=== PATIENT | female | born 1980 | race Caucasian/White ===

== ENCOUNTER 2017-08-21 09:45 | Inpatient (IN) | payer BC ==
[2017-08-21] MEDS ORDERED: Betamethasone Acetate/Betamethasone Sod Phosphate 30 MG/5 ML MDV IM ONE (10:15)
[2017-08-21] MEDS ORDERED: Sodium Chloride 0.9% 10 ML Syringe FLUSH PRN (10:15)
[2017-08-21] MEDS ORDERED: Magnesium Sulfate/Water 40 GM/1,000 ML BAG ONE (10:22)
[2017-08-21] MEDS ORDERED: Magnesium Sulfate/Water 50 ML ONE (10:22)
[2017-08-21] MEDS ORDERED: Magnesium Sulfate/Water 100 ML ONE (10:22)
[2017-08-21] MEDS ORDERED: Magnesium Sulfate/Water 4 GM in Premix Bag 1 BAG IV ONE (10:26)
[2017-08-21] MEDS ORDERED: Magnesium Sulfate/Water 2 GM in Premix Bag 1 BAG IV ONE (10:26)
[2017-08-21] MEDS ORDERED: hydrALAZINE 20 MG/ML SDV IVPUSH STA (10:26)
[2017-08-21] MEDS: Lactated Ringers 1,000 ML IV SCH ×2 (10:33→18:03)
[2017-08-21] MEDS ORDERED: hydrALAZINE 20 MG/ML SDV IVPUSH ONE ×2 (10:53→18:14)
--- NOTE | 2017-08-21 11:03 | PCM.PREANE ---
Preanesthetic Assessment - Procedure Proposed Procedure: Emergent - Anesthesia/Transfusion/Family Hx Anesthesia History: Prior Anesthesia Without Reaction Family History of Anesthesia Reaction: No Transfusion History: No Prior Transfusion(s) Intubation History: Unknown - Review of Systems General: No Symptoms Pulmonary: No Symptoms Cardiovascular: Other (HTN, eclapmsia 178/111, pt on magnesium and been given hydralizine IV) Gastrointestinal: No Symptoms Neurological: No Symptoms Other: Reports: Anxiety - Physical Assessment NPO Status Date: 08/20/17 NPO Status Time: 21:30 Pulse: 74 O2 Sat by Pulse Oximetry: 98 Respiratory Rate: 18 Blood Pressure: 178/111 Temperature: 98.8 C Height: 1.73 m Weight: 116.21 kg ASA Class: 2E Mental Status: Alert & Oriented x3 Airway Class: Mallampati = 1 Dentition: Reports: Normal Dentition Thyro-Mental Finger Breadths: 3 Mouth Opening Finger Breadths: 3 ROM/Head Extension: Full Lungs: Clear to Auscultation, Normal Respiratory Effort Cardiovascular: Regular Rate, Regular Rhythm - Lab Values: Laboratory Last Values WBC 12.60 K/mm3 (3.98-10.04) H 08/21/17 10:10 RBC 4.63 M/mm3 (3.98-5.22) 08/21/17 10:10 Hgb 13.5 gm/L (11.2-15.7) 08/21/17 10:10 Hct 40.2 % (34.1-44.9) 08/21/17 10:10 MCV 86.8 fl (79.4-94.8) 08/21/17 10:10 MCH 29.2 pg (25.6-32.2) 08/21/17 10:10 MCHC 33.6 g/dl (32.2-35.5) 08/21/17 10:10 RDW Std Deviation 41.3 fL (36.4-46.3) 08/21/17 10:10 Plt Count 166 K/mm3 (182-369) L 08/21/17 10:10 MPV 12.3 fl (9.4-12.3) 08/21/17 10:10 Neut % (Auto) 70.1 % (34.0-71.1) 08/21/17 10:10 Lymph % (Auto) 20.1 % (19.3-51.7) 08/21/17 10:10 [place] % (Auto) 8.6 % (4.7-12.5) 08/21/17 10:10 Eos % (Auto) 0.7 (0.7-5.8) 08/21/17 10:10 Baso % (Auto) 0.2 % (0.1-1.2) 08/21/17 10:10 Neut # (Auto) 8.83 K/mm3 (1.56-6.13) H 08/21/17 10:10 Lymph # (Auto) 2.53 K/mm3 (1.18-3.74) 08/21/17 10:10 [place] # (Auto) 1.08 K/mm3 (0.24-0.36) H 08/21/17 10:10 Eos # (Auto) 0.09 K/mm3 (0.04-0.36) 08/21/17 10:10 Baso # (Auto) 0.03 K/mm3 (0.01-0.08) 08/21/17 10:10 BUN 11 mg/dL (7-18) 08/21/17 10:10 Creatinine 0.9 mg/dL (0.55-1.02) 08/21/17 10:10 Est Cr Clr Drug Dosing 88.01 mL/min 08/21/17 10:10 Estimated GFR (MDRD) > 60 mL/min (>60) 08/21/17 10:10 Uric Acid 5.3 mg/dL (2.6-6.0) 08/21/17 10:10 AST 23 U/L (15-37) 08/21/17 10:10 ALT 22 U/L (14-59) 08/21/17 10:10 Lactate Dehydrogenase 236 U/L (81-234) H 08/21/17 10:10 Urine Color Yellow (Yellow) 08/21/17 10:10 Urine Appearance Clear (Clear) 08/21/17 10:10 Urine pH 6.5 (5.0-8.0) 08/21/17 10:10 Ur Specific [place] 1.025 (1.005-1.030) 08/21/17 10:10 Urine Protein 2+ (Negative) H 08/21/17 10:10 Urine Glucose (UA) Negative (Negative) 08/21/17 10:10 Urine Ketones Negative (Negative) 08/21/17 10:10 Urine Occult Blood Negative (Negative) 08/21/17 10:10 Urine Nitrite Negative (Negative) 08/21/17 10:10 Urine Bilirubin Negative (Negative) 08/21/17 10:10 Urine Urobilinogen 0.2 (0.2-1.0) 08/21/17 10:10 Ur Leukocyte Esterase Negative (Negative) 08/21/17 10:10 - Allergies Allergies/Adverse Reactions: Allergies Allergy/AdvReac Type Severity Reaction Status Date / Time PAIN KILLERS AdvReac Nausea Uncoded 08/21/17 10:23 - Blood Blood Available: No Product(s) Available: None - Anesthesia Plan Pre-Op Medication Ordered: None - Acknowledgements Anesthesia Type Planned: General Anesthesia (if not enough time for spinal ), Spinal (with duramorph is first option) Pt an Appropriate Candidate for the Planned Anesthesia: Yes Alternatives and Risks of Anesthesia Discussed w Pt/Guardian: Yes Pt/Guardian Understands and Agrees with Anesthesia Plan: Yes PreAnesthesia Questionnaire - SUBSTANCE USE Smoking Status *Q: Never Smoker Recreational Drug Use History: No - HOME MEDS Home Medications: Home Meds ALPRAZolam [Xanax] 0.25 mg PO Q6H PRN 11/27/14 [History] - CURRENT (IN HOUSE) MEDS Current Meds: Current Medications Lactated Ringer's (Ringers, Lactated) 1,000 mls @ 75 mls/hr IV ASDIRECTED [facility] Last Admin: 08/21/17 10:33 Dose: 75 mls/hr Magnesium Sulfate (Magnesium Sulfate 40 Gm In Water 1000 Ml) 40 gm in 1,000 mls @ 50 mls/hr IV ASDIRECTED [facility] Sodium Chloride (Saline Flush) 10 ml FLUSH ASDIRECTED PRN PRN Reason: Keep Vein Open Discontinued Medications Betamethasone Acet/Betameth SodPhos ([place] Soluspan 6 Mg/Ml) 12 mg IM ONETIME ONE Stop: 08/21/17 10:16 Last Admin: 08/21/17 10:38 Dose: 12 mg Hydralazine HCl (Apresoline) 10 mg IVPUSH ONETIME STA Stop: 08/21/17 10:27 Last Admin: 08/21/17 10:33 Dose: 10 mg Magnesium Sulfate (Magnesium Sulfate 4 Gm In Water 100 Ml) Confirm Administered Dose 100 mls @ as directed .ROUTE .ST-MED ONE Stop: 08/21/17 10:23 Magnesium Sulfate (Magnesium Sulfate 2 Gm In Water 50 Ml) Confirm Administered Dose 50 mls @ as directed .ROUTE .STK-MED ONE Stop: 08/21/17 10:23 Magnesium Sulfate (Magnesium Sulfate 40 Gm In Water 1000 Ml) Confirm Administered Dose 40 gm in 1,000 mls @ as directed .ROUTE .ST-MED ONE Stop: 08/21/17 10:23 Magnesium Sulfate 4 gm/ Premix 100 mls @ 300 mls/hr IV ONETIME ONE Stop: 08/21/17 10:45 Last Admin: 08/21/17 10:45 Dose: 300 mls/hr Magnesium Sulfate 2 gm/ Premix 50 mls @ 300 mls/hr IV ONETIME ONE Stop: 08/21/17 10:35 Last Admin: 08/21/17 10:38 Dose: 300 mls/hr
[2017-08-21] MEDS: Magnesium Sulfate/Water 40 GM/1,000 ML BAG IV SCH (11:06)
[2017-08-21] MEDS ORDERED: Labetalol 100 MG/20 ML MDV ONE (11:06)
[2017-08-21] MEDS ORDERED: Labetalol 100 MG/20 ML MDV IVPUSH ONE ×2 (11:07→18:16)
[2017-08-21] MEDS ORDERED: Metoclopramide 10 MG/2 ML SDV IVPUSH ONE (11:13)
[2017-08-21] MEDS ORDERED: Citric Acid/Sodium Citrate Solution 30 ML Cup PO ONE (11:13)
[2017-08-21] MEDS ORDERED: ceFAZolin 2 GM in Premix Bag 1 BAG IV ONE (11:13)
[2017-08-21] MEDS ORDERED: Oxytocin/Lactated Ringers 10 UNIT/1,000 ML BAG IV SCH (11:15)
--- NOTE | 2017-08-21 11:19 | PCM.LDHP ---
L&D History of Present Illness - General Date of Service: 08/21/17 Admit Problem/Dx: Patient Status Order with Admit Dx/Problem 08/21/17 09:57 Patient Status [ADT] Routine Admission Diagnosis/Problem Admission Diagnosis/Problem Source of Information: Patient History Limitations: Reports: No Limitations - History of Present Illness Introduction:: Patient is a 36 y/o at 34 0/7 wks who presents to L&D from clinic today. Was seen for routine Ob appointment where BP's noted to be 142/96, 175/ 115, and 190/110. She was sent to L&D. She reports doing well. No headaches, vision changes, or RUQ pain. Has been getting good FM. No signs of labor - Related Data Allergies/Adverse Reactions: Allergies Allergy/AdvReac Type Severity Reaction Status Date / Time PAIN KILLERS AdvReac Nausea Uncoded 08/21/17 10:23 Home Medications: Home Meds ALPRAZolam [Xanax] 0.25 mg PO Q6H PRN 11/27/14 [History] Past Medical History Cardiovascular History: Reports: Hypertension Psychiatric History: Reports: Anxiety - Past Surgical History HEENT Surgical History: Reports: Oral Surgery ([place] tooth extraction), Tonsillectomy, Other (See Below) (TMJ) Female Surgical History: Reports: Section (x2) Male Surgical History: Reports: Lithotripsy (ESWL) Social & Family History - Tobacco Use Smoking Status *Q: Never Smoker - Alcohol Use Alcohol Use History: No - Recreational Drug Use Recreational Drug Use: No H&P Review of Systems - Review of Systems: Review Of Systems: See Below General: Reports: No Symptoms Pulmonary: Reports: No Symptoms Cardiovascular: Reports: No Symptoms Gastrointestinal: Reports: No Symptoms Genitourinary: Reports: No Symptoms Musculoskeletal: Reports: No Symptoms Psychiatric: Reports: No Symptoms Neurological: Reports: No Symptoms L&D Exam - Exam Exam: See Below - Vital Signs Vital Signs: Last Vital Signs Temp 98.8 C H 08/21/17 11:03 Pulse 98 08/21/17 11:12 Resp 18 08/21/17 11:03 BP 200/117 H 08/21/17 11:12 Pulse Ox 98 08/21/17 11:03 Weight: 116.21 kg - OB Specific Contraction Intensity: Irritability Movement: Active Heart Tones: Present Heart Tones per Min: 140 Heart Rate (FHR) Variability: Moderate (6-25 bmp) Presentation: Vertex - Exam General: Alert, Oriented, Cooperative Lungs: Clear to Auscultation, Normal Respiratory Effort Cardiovascular: Regular Rate, Regular Rhythm GI/Abdominal Exam: Soft, Non-Tender Extremities: Normal Inspection, Pedal Edema Skin: Warm, Dry, Intact Neurological: Cranial Nerves Intact, Reflexes Equal Bilateral DTR: 1+: Patella (L), Patella (R) - Patient Data Lab Results Last 24 hrs: Laboratory Results - last 24 hr 08/21/17 08/21/17 08/21/17 Range/Units 10:10 10:10 10:10 WBC 12.60 H (3.98-10.04) K/mm3 RBC 4.63 (3.98-5.22) M/mm3 Hgb 13.5 (11.2-15.7) gm/L Hct 40.2 (34.1-44.9) % MCV 86.8 (79.4-94.8) fl MCH 29.2 (25.6-32.2) pg MCHC 33.6 (32.2-35.5) g/dl RDW Std Deviation 41.3 (36.4-46.3) fL Plt Count 166 L (182-369) K/mm3 MPV 12.3 (9.4-12.3) fl Neut % (Auto) 70.1 (34.0-71.1) % Lymph % (Auto) 20.1 (19.3-51.7) % [place] % (Auto) 8.6 (4.7-12.5) % Eos % (Auto) 0.7 (0.7-5.8) Baso % (Auto) 0.2 (0.1-1.2) % Neut # (Auto) 8.83 H (1.56-6.13) K/mm3 Lymph # (Auto) 2.53 (1.18-3.74) K/mm3 [place] # (Auto) 1.08 H (0.24-0.36) K/mm3 Eos # (Auto) 0.09 (0.04-0.36) K/mm3 Baso # (Auto) 0.03 (0.01-0.08) K/mm3 BUN 11 (7-18) mg/dL Creatinine 0.9 (0.55-1.02) mg/dL Est Cr Clr Drug Dosing 88.01 mL/min Estimated GFR (MDRD) > 60 (>60) mL/min Uric Acid 5.3 (2.6-6.0) mg/dL AST 23 (15-37) U/L ALT 22 (14-59) U/L Lactate Dehydrogenase 236 H (81-234) U/L Urine Color Yellow (Yellow) Urine Appearance Clear (Clear) Urine pH 6.5 (5.0-8.0) Ur Specific [place] 1.025 (1.005-1.030) Urine Protein 2+ H (Negative) Urine Glucose (UA) Negative (Negative) Urine Ketones Negative (Negative) Urine Occult Blood Negative (Negative) Urine Nitrite Negative (Negative) Urine Bilirubin Negative (Negative) Urine Urobilinogen 0.2 (0.2-1.0) Ur Leukocyte Esterase Negative (Negative) Result Diagrams: 08/21/17 10:10 08/21/17 10:10 - Problem List (1) 34 weeks gestation of SNOMED Code(s): 59266041 ICD Code: Z3A.34 - 34 WEEKS GESTATION OF Status: Acute Current Visit: Yes (2) Chronic hypertension during SNOMED Code(s): 74095657 ICD Code: O10.919 - UNSP PRE-EXISTING HTN COMP , UNSP TRIMESTER Status: Acute Current Visit: Yes (3) Pre-eclampsia superimposed on chronic hypertension SNOMED Code(s): 25662065 ICD Code: O11.9 - PRE-EXISTING HYPERTENSION WITH PRE-ECLAMPSIA, UNSP TRIMESTER Status: Acute Current Visit: Yes (4) History of SNOMED Code(s): 906304442 ICD Code: Z98.891 - HISTORY OF UTERINE SCAR FROM PREVIOUS SURGERY Status: Acute Current Visit: Yes Problem List Initiated/Reviewed/Updated: Yes Orders Last 24hrs: Active Orders 24 hr Category Date Time Status Patient Status [ADT] Routine ADT 08/21/17 09:57 Active Bedrest [RC] ASDIRECTED Care 08/21/17 10:26 Active Communication Order [RC] ROUTINE Care 08/21/17 11:13 Ordered Heart Tones [RC] PER UNIT ROUTINE Care 08/21/17 11:13 Ordered Monitoring [RC] CONTINUOUS Care 08/21/17 10:26 Active Non Stress Test [RC] PER UNIT ROUTINE Care 08/21/17 09:57 Active Peripheral IV Care [RC] . DIRECTED Care 08/21/17 10:15 Active Procedure Site Prep Instruct [RC] ASDIRECTED Care 08/21/17 11:13 Ordered Verify Patient Consent Obtain [RC] PER UNIT ROUTINE Care 08/21/17 11:13 Ordered Vital Signs [RC] ASDIRECTED Care 08/21/17 10:26 Active Vital Signs [RC] PER UNIT ROUTINE Care 08/21/17 09:57 Active TYPE AND SCREEN [BBK] Routine Lab 08/21/17 11:13 Ordered UA W/MICROSCOPIC [URIN] Routine Lab 08/21/17 10:10 Results Citric Acid/Sodium Citrate [Bicitra Solution] Med 08/21/17 11:13 Once 30 ml PO ONETIME ONE Lactated Ringers [Ringers, Lactated] 1,000 ml Med 08/21/17 10:45 Ordered IV ASDIRECTED Magnesium Sulfate/Water [Magnesium Sulfate 40 GM in Med 08/21/17 11:00 Ordered Water 1000 ML] 40 gm in 1,000 ml IV ASDIRECTED Metoclopramide [Reglan] Med 08/21/17 11:13 Once 10 mg IVPUSH ONETIME ONE Oxytocin/Lactated Ringers [Pitocin in LR 10 Units/1,000 Med 08/21/17 11:15 Ordered ML] 10 unit in 1,000 ml IV ASDIRECTED Sodium Chloride 0.9% [Saline Flush] Med 08/21/17 10:15 Active 10 ml FLUSH ASDIRECTED PRN ceFAZolin [Ancef] 2 gm Med 08/21/17 11:13 Ordered Premix Bag 1 bag IV ONETIME Blood Pressure [OM.PC] ASDIRECTED Oth 08/21/17 10:30 Ordered Deep Tendon Reflexes [WOMSER] ASDIRECTED Oth 08/21/17 10:30 Ordered PIH Panel [OM.PC] Stat Oth 08/21/17 09:57 Ordered Peripheral IV Insertion Adult [OM.PC] Routine Oth 08/21/17 10:15 Ordered Schedule Procedure [COMM] Per Unit Routine Oth 08/21/17 11:13 Ordered Resuscitation Status Routine Resus Stat 08/21/17 09:57 Ordered Medication Orders Citric Acid/Sodium Citrate (Bicitra Solution) 30 ml PO ONETIME ONE Stop: 08/21/17 11:14 Lactated Ringer's (Ringers, Lactated) 1,000 mls @ 75 mls/hr IV ASDIRECTED [facility] Last Admin: 08/21/17 10:33 Dose: 75 mls/hr Magnesium Sulfate (Magnesium Sulfate 40 Gm In Water 1000 Ml) 40 gm in 1,000 mls @ 50 mls/hr IV ASDIRECTED [facility] Last Admin: 08/21/17 11:06 Dose: 50 mls/hr Cefazolin Sodium/Dextrose 2 gm (/ Premix) 50 mls @ 100 mls/hr IV ONETIME ONE Stop: 08/21/17 11:42 Oxytocin/Lactated Ringer's (Pitocin In Lr 10 Units/1,000 Ml) 10 unit in 1,000 mls @ 100 mls/hr IV ASDIRECTED [facility] PRN Reason: Protocol Metoclopramide HCl (Reglan) 10 mg IVPUSH ONETIME ONE Stop: 08/21/17 11:14 Sodium Chloride (Saline Flush) 10 ml FLUSH ASDIRECTED PRN PRN Reason: Keep Vein Open Assessment/Plan Comment:: 36 y/o at 34 0/7 wks who presents for concerns of elevated BP's c/w superimposed preeclampsia * Patient's initial BP's were 212/127, 195/120, 180/106. Magnesium started. 10 mg of IV hydralazine given at 1033. BP's still 187/117. 2nd dose of 10 mg IV hydralazine given at 1053. BP's still severe and so at 1112 she was given 20 mg of IV labetalol and decision made to proceed to OR for repeat as unstable for transfer to [place]. * CBC, AST, ALT, Creatinine, and T&S drawn * Ayde CHOWDARY * Surgery consent reviewed and signed * Anesthesia and Peds aware
[2017-08-21] MEDS ORDERED: ceFAZolin 1 GM Vial ONE (11:29)
[2017-08-21] MEDS ORDERED: Ondansetron 4 MG/2 ML SDV ONE (11:29)
[2017-08-21] MEDS ORDERED: Oxytocin 10 Units/1 ML SDV ONE (11:29)
[2017-08-21] MEDS ORDERED: Morphine PF 10 MG/10 ML SDV ONE (11:31)
[2017-08-21] MEDS ORDERED: Phenylephrine 1% 10 MG/ML SDV ONE (11:34)
[2017-08-21] MEDS ORDERED: ePHEDrine 50 MG/ML SDV ONE (11:36)
[2017-08-21] MEDS ORDERED: Ketorolac 30 MG/ML SDV ONE (12:29)
--- NOTE | 2017-08-21 12:43 | PCM.POSTAN ---
POST ANESTHESIA ASSESSMENT - MENTAL STATUS Mental Status: Alert, Oriented - VITAL SIGNS Pulse Rate: 76 SaO2: 95 Resp Rate: 7 Blood Pressure: 144/85 Temperature: 36.9 C - RESPIRATORY Respiratory Status: Respiratory Rate WNL, Airway Patent, O2 Saturation Stable, Supplemental Oxygen - CARDIOVASCULAR CV Status: Pulse Rate WNL, Blood Pressure Stable - GASTROINTESTINAL GI Status: No Symptoms - PAIN Pain Score: 0 - POST OP HYDRATION Hydration Status: Adequate & Stable
[2017-08-21] MEDS ORDERED: Meperidine PF 50 MG/ML Syringe IVPUSH PRN (12:44)
[2017-08-21] MEDS ORDERED: diphenhydrAMINE 50 MG/ML SDV IVPUSH PRN (12:44)
[2017-08-21] MEDS ORDERED: fentaNYL 100 MCG/2 ML SDV IVPUSH PRN (12:44)
[2017-08-21] MEDS ORDERED: Ondansetron 4 MG/2 ML SDV IVPUSH PRN (12:44)
--- NOTE | 2017-08-21 12:54 | PCM.OPNOTE ---
- General Post-Op/Procedure Note Date of Surgery/Procedure: 08/21/17 Operative Procedure(s): Repeat low transverse . Drainage/excision of left sided paratubal cyst Findings: Moderate amount of scar tissue between rectus and fascia. Minimal scar tissue between the bladder and lower uterine segment. Somewhat thinner than expected JONATHAN for 34 week gestation. Male in a vertex presentation with weight of 4 lbs 8 oz and APGARS of 7 & 8. Large, approximately 6-7 cm, left sided paratubal cyst. Pre Op Diagnosis: 34 weeks gestation. Hx of x2. Superimposed preeclampsia Post-Op Diagnosis: Same Anesthesia Technique: Spinal Primary Surgeon: [place] Tuttle Secondary Surgeon: Samantha Crain Anesthesia Provider: Rohan Sheehan Reason Flat Lock Operator Was Necessary: Severity of underlying maternal condition, speed of case, etc. Pathology: Placenta sent to pathology. Cord blood collected. Paratubal cyst discarded. Fluid Replacement, Intraop: 1,000 Output, Urine Amount: 300 EBL in mLs: 700 Complications: None Condition: Good Free Text/Narrative:: The risks, benefits, indications, potential complications, and alternatives were explained to the patient and informed consent obtained. After induction of anesthesia, the patient was placed in a supine position and then draped and prepped in the usual sterile manner. A Pfannenstiel incision was made and carried down through the subcutaneous tissue to the fascia. Fascial incision was made and extended transversely. The fascia was from the underlying rectus tissue superiorly and inferiorly. The peritoneum was identified and entered. Peritoneal incision was extended longitudinally. The utero-vesical peritoneal reflection was incised transversely and the bladder flap was bluntly freed from the lower uterine segment. A low transverse uterine incision was made sharply with a scalpel and extended bluntly in a cephalocaudad direction. A baby boy was delivered from a vertex presentation with APGARS as above. After the umbilical cord was clamped and cut cord blood was obtained for evaluation. The placenta was removed intact and appeared normal. The uterus was exteriorized and cleared of clots. The uterine outline and ovaries appeared normal. There was a large, left sided paratubal cyst noted. The uterine incision was closed with running locked sutures of 0 Vicryl. Hemostasis was obtained with a second imbricating layer of 0 vicryl. The paratubal cyst was then opened/drained with cautery and cyst wall excised. Few bleeding ends controlled with two free ties of 0 vicryl. The uterus was then placed back into the abdomen. The infracolic gutters were cleared of blood clots. The fascia was then reapproximated with running sutures of 0 Vicryl. The sucutaneous tissue was irrigated with sterile warm normal saline, hemostasis obtained with cautery. This layer was closed with a running 0 vicryl suture. The skin was reapproximated with running Subcuticular 4-0 monocryl sutures. Instrument, sponge, and needle counts were correct prior the abdominal closure and at the conclusion of the case.
[2017-08-21] MEDS ORDERED: Calcium Gluconate 10% 1 GM/10 ML SDV IV PRN (13:57)
[2017-08-21] MEDS ORDERED: Acetaminophen/oxyCODONE 325-5 MG Tab PO PRN (13:57)
[2017-08-21] MEDS ORDERED: NIFEdipine 30 MG Tab.ER PO ONE ×2 (15:52→17:17)
--- NOTE | 2017-08-21 17:19 | PCM.SN ---
- Free Text/Narrative Note: 1720 Called by nursing around 1530 due to increasing BP's after surgery. PM dose of 30 mg XL nifedipine ordered to be given and done as 1600. Still with severe range BP's on current assessment. Patient reports doing well. Tolerating magnesium without complaints. UOP excellent. Will give second dose of 30 mg oral nifedipine now. Will reassess in about 45-60 minutes. If still high will need to consider additional anti-hypertensives. Jamaica Tuttle MD
[2017-08-21] MEDS: Ketorolac 30 MG/ML SDV IVPUSH SCH (18:27)
[2017-08-21] MEDS ORDERED: Calcium Carbonate 500 MG Tab.Chew PO PRN (19:18)
--- NOTE | 2017-08-21 20:04 | PCM.SN ---
- Free Text/Narrative Note: 1899 Patient still with severe range BP's and so just given 20 mg of IV labetalol. Still reports feeling well. No headaches, vision changes, RUQ pain. No abdominal pain. Will continue with present management. [place] Tuttle MD
[2017-08-21] MEDS ORDERED: Labetalol 100 MG Tab PO SCH (21:21)
[2017-08-22] MEDS: Ketorolac 30 MG/ML SDV IVPUSH SCH ×2 (00:21→20:58)
[2017-08-22] MEDS ORDERED: NIFEdipine 30 MG Tab.ER PO ONE (03:00)
--- NOTE | 2017-08-22 08:44 | PCM.PNPP ---
- General Info Date of Service: 08/22/17 Functional Status: Reports: Pain Controlled, Tolerating Diet - Review of Systems General: Reports: No Symptoms Pulmonary: Reports: No Symptoms Cardiovascular: Reports: No Symptoms Gastrointestinal: Reports: Abdominal Pain (manageable) Genitourinary: Reports: No Symptoms Musculoskeletal: Reports: No Symptoms Neurological: Reports: No Symptoms - Patient Data Vital Signs - Most Recent: Last Vital Signs Temp 37.0 C 08/21/17 13:35 Pulse 75 08/22/17 01:02 Resp 18 08/22/17 01:00 BP 136/80 08/22/17 01:02 Pulse Ox 94 L 08/22/17 01:02 Weight - Most Recent: 116.21 kg I&O - Last 24 Hours: Intake & Output 08/21/17 08/22/17 08/22/17 22:59 06:59 14:59 Intake Total 2075 225 Output Total 1275 275 Balance 800 -50 Lab Results - Last 24 Hours: Laboratory Results - last 24 hr 08/21/17 08/21/17 08/21/17 Range/Units 10:10 10:10 10:10 WBC 12.60 H (3.98-10.04) K/mm3 RBC 4.63 (3.98-5.22) M/mm3 Hgb 13.5 (11.2-15.7) gm/L Hct 40.2 (34.1-44.9) % MCV 86.8 (79.4-94.8) fl MCH 29.2 (25.6-32.2) pg MCHC 33.6 (32.2-35.5) g/dl RDW Std Deviation 41.3 (36.4-46.3) fL Plt Count 166 L (182-369) K/mm3 MPV 12.3 (9.4-12.3) fl Neut % (Auto) 70.1 (34.0-71.1) % Lymph % (Auto) 20.1 (19.3-51.7) % [place] % (Auto) 8.6 (4.7-12.5) % Eos % (Auto) 0.7 (0.7-5.8) Baso % (Auto) 0.2 (0.1-1.2) % Neut # (Auto) 8.83 H (1.56-6.13) K/mm3 Lymph # (Auto) 2.53 (1.18-3.74) K/mm3 [place] # (Auto) 1.08 H (0.24-0.36) K/mm3 Eos # (Auto) 0.09 (0.04-0.36) K/mm3 Baso # (Auto) 0.03 (0.01-0.08) K/mm3 BUN 11 (7-18) mg/dL Creatinine 0.9 (0.55-1.02) mg/dL Est Cr Clr Drug Dosing 88.01 mL/min Estimated GFR (MDRD) > 60 (>60) mL/min Uric Acid 5.3 (2.6-6.0) mg/dL AST 23 (15-37) U/L ALT 22 (14-59) U/L Lactate Dehydrogenase 236 H (81-234) U/L Urine Color Yellow (Yellow) Urine Appearance Clear (Clear) Urine pH 6.5 (5.0-8.0) Ur Specific [place] 1.025 (1.005-1.030) Urine Protein 2+ H (Negative) Urine Glucose (UA) Negative (Negative) Urine Ketones Negative (Negative) Urine Occult Blood Negative (Negative) Urine Nitrite Negative (Negative) Urine Bilirubin Negative (Negative) Urine Urobilinogen 0.2 (0.2-1.0) Ur Leukocyte Esterase Negative (Negative) Urine RBC 0-5 (0-5) /hpf Urine WBC 0-5 (0-5) /hpf Ur Epithelial Cells 0-5 (0-5) /hpf Urine Bacteria Many H (FEW) /hpf Urine Mucus Many H (FEW) /hpf Blood Type Gel Antibody Screen 08/21/17 Range/Units 10:10 WBC (3.98-10.04) K/mm3 RBC (3.98-5.22) M/mm3 Hgb (11.2-15.7) gm/L Hct (34.1-44.9) % MCV (79.4-94.8) fl MCH (25.6-32.2) pg MCHC (32.2-35.5) g/dl RDW Std Deviation (36.4-46.3) fL Plt Count (182-369) K/mm3 MPV (9.4-12.3) fl Neut % (Auto) (34.0-71.1) % Lymph % (Auto) (19.3-51.7) % Whiteside % (Auto) (4.7-12.5) % Eos % (Auto) (0.7-5.8) Baso % (Auto) (0.1-1.2) % Neut # (Auto) (1.56-6.13) K/mm3 Lymph # (Auto) (1.18-3.74) K/mm3 [place] # (Auto) (0.24-0.36) K/mm3 Eos # (Auto) (0.04-0.36) K/mm3 Baso # (Auto) (0.01-0.08) K/mm3 BUN (7-18) mg/dL Creatinine (0.55-1.02) mg/dL Est Cr Clr Drug Dosing mL/min Estimated GFR (MDRD) (>60) mL/min Uric Acid (2.6-6.0) mg/dL AST (15-37) U/L ALT (14-59) U/L Lactate Dehydrogenase (81-234) U/L Urine Color (Yellow) Urine Appearance (Clear) Urine pH (5.0-8.0) Ur Specific [place] (1.005-1.030) Urine Protein (Negative) Urine Glucose (UA) (Negative) Urine Ketones (Negative) Urine Occult Blood (Negative) Urine Nitrite (Negative) Urine Bilirubin (Negative) Urine Urobilinogen (0.2-1.0) Ur Leukocyte Esterase (Negative) Urine RBC (0-5) /hpf Urine WBC (0-5) /hpf Ur Epithelial Cells (0-5) /hpf Urine Bacteria (FEW) /hpf Urine Mucus (FEW) /hpf Blood Type O POSITIVE Gel Antibody Screen Negative Med Orders - Current: Current Medications Calcium Carbonate/Glycine (Tums) 500 mg PO Q2HR PRN PRN Reason: Indigestion Calcium Gluconate (Calcium Gluconate) 1 gm IV ASDIRECTED PRN PRN Reason: respiratory distress Lactated Ringer's (Ringers, Lactated) 1,000 mls @ 75 mls/hr IV ASDIRECTED [facility] Last Admin: 08/21/17 18:03 Dose: 75 mls/hr Magnesium Sulfate (Magnesium Sulfate 40 Gm In Water 1000 Ml) 40 gm in 1,000 mls @ 50 mls/hr IV ASDIRECTED [facility] Last Admin: 08/21/17 11:06 Dose: 50 mls/hr Oxycodone/Acetaminophen (Percocet 325-5 Mg) 2 tab PO Q4H PRN PRN Reason: Pain (moderate 4-6) Discontinued Medications Betamethasone Acet/Betameth SodPhos (Celestone Soluspan 6 Mg/Ml) 12 mg IM ONETIME ONE Stop: 08/21/17 10:16 Last Admin: 08/21/17 10:38 Dose: 12 mg Cefazolin Sodium (Ancef) Confirm Administered Dose 2 gm .ROUTE .STK-MED ONE Stop: 08/21/17 11:30 Citric Acid/Sodium Citrate (Bicitra Solution) 30 ml PO ONETIME ONE Stop: 08/21/17 11:14 Last Admin: 08/21/17 11:24 Dose: 30 ml Diphenhydramine HCl (Benadryl) 25 mg IVPUSH Q6H PRN PRN Reason: Pruritis Ephedrine Sulfate (Ephedrine Sulfate) Confirm Administered Dose 50 mg .ROUTE .STK-MED ONE Stop: 08/21/17 11:37 Fentanyl (Sublimaze) 50 mcg IVPUSH Q5M PRN PRN Reason: Pain Hydralazine HCl (Apresoline) 10 mg IVPUSH ONETIME STA Stop: 08/21/17 10:27 Last Admin: 08/21/17 10:33 Dose: 10 mg Hydralazine HCl (Apresoline) 10 mg IVPUSH ONETIME ONE Stop: 08/21/17 18:15 Last Admin: 08/21/17 19:40 Dose: Not Given Hydralazine HCl (Apresoline) 10 mg IVPUSH ONETIME ONE Stop: 08/21/17 10:54 Last Admin: 08/21/17 10:53 Dose: 10 mg Magnesium Sulfate (Magnesium Sulfate 4 Gm In Water 100 Ml) Confirm Administered Dose 100 mls @ as directed .ROUTE .STK-MED ONE Stop: 08/21/17 10:23 Last Admin: 08/21/17 14:38 Dose: Not Given Magnesium Sulfate (Magnesium Sulfate 2 Gm In Water 50 Ml) Confirm Administered Dose 50 mls @ as directed .ROUTE .STK-MED ONE Stop: 08/21/17 10:23 Last Admin: 08/21/17 14:38 Dose: Not Given Magnesium Sulfate (Magnesium Sulfate 40 Gm In Water 1000 Ml) Confirm Administered Dose 40 gm in 1,000 mls @ as directed .ROUTE .STK-MED ONE Stop: 08/21/17 10:23 Last Admin: 08/21/17 14:37 Dose: Not Given Magnesium Sulfate 4 gm/ Premix 100 mls @ 300 mls/hr IV ONETIME ONE Stop: 08/21/17 10:45 Last Admin: 08/21/17 10:45 Dose: 300 mls/hr Magnesium Sulfate 2 gm/ Premix 50 mls @ 300 mls/hr IV ONETIME ONE Stop: 08/21/17 10:35 Last Admin: 08/21/17 10:38 Dose: 300 mls/hr Cefazolin Sodium/Dextrose 2 gm (/ Premix) 50 mls @ 100 mls/hr IV ONETIME ONE Stop: 08/21/17 11:42 Last Admin: 08/21/17 14:37 Dose: Not Given Oxytocin/Lactated Ringer's (Pitocin In Lr 10 Units/1,000 Ml) 10 unit in 1,000 mls @ 100 mls/hr IV ASDIRECTED [facility]; Protocol Ketorolac Tromethamine (Toradol) Confirm Administered Dose 30 mg .ROUTE .STK- MED ONE Stop: 08/21/17 12:30 Ketorolac Tromethamine (Toradol) 30 mg IVPUSH Q6H [facility] Stop: 08/22/17 06:31 Last Admin: 08/22/17 00:21 Dose: 30 mg Labetalol HCl (Normodyne) 20 mg IVPUSH ONETIME ONE; Protocol Stop: 08/21/17 11:08 Last Admin: 08/21/17 11:12 Dose: 4 ml Labetalol HCl (Normodyne) Confirm Administered Dose 100 mg .ROUTE .STK-MED ONE Stop: 08/21/17 11:07 Last Admin: 08/21/17 14:37 Dose: Not Given Labetalol HCl (Normodyne) 20 mg IVPUSH ONETIME ONE; Protocol Stop: 08/21/17 18:17 Last Admin: 08/21/17 18:36 Dose: 20 mg Labetalol HCl (Normodyne) 400 mg PO BID [facility] Labetalol HCl (Normodyne) 400 mg PO BID [facility] Last Admin: 08/21/17 21:49 Dose: 400 mg Meperidine HCl (Demerol) 12.5 mg IVPUSH ONETIME PRN PRN Reason: Shivering Metoclopramide HCl (Reglan) 10 mg IVPUSH ONETIME ONE Stop: 08/21/17 11:14 Last Admin: 08/21/17 11:24 Dose: 10 mg Morphine Sulfate (Duramorph Pf) Confirm Administered Dose 10 mg .ROUTE .STK-MED ONE Stop: 08/21/17 11:32 Nifedipine (Procardia Xl) 30 mg PO ONETIME ONE Stop: 08/21/17 15:53 Last Admin: 08/21/17 16:03 Dose: 30 mg Nifedipine (Procardia Xl) 30 mg PO ONETIME ONE Stop: 08/21/17 17:18 Last Admin: 08/21/17 18:02 Dose: 30 mg Nifedipine (Procardia Xl) 60 mg PO ONETIME ONE Stop: 08/22/17 03:01 Ondansetron HCl (Zofran) Confirm Administered Dose 4 mg .ROUTE .STK-MED ONE Stop: 08/21/17 11:30 Ondansetron HCl (Zofran) 4 mg IVPUSH ONETIME PRN PRN Reason: Nausea/Vomiting Oxytocin (Pitocin) Confirm Administered Dose 10 unit .ROUTE .STK-MED ONE Stop: 08/21/17 11:30 Phenylephrine HCl (Rolf-Synephrine) Confirm Administered Dose 10 mg .ROUTE .STK- MED ONE Stop: 08/21/17 11:35 Sodium Chloride (Saline Flush) 10 ml FLUSH ASDIRECTED PRN PRN Reason: Keep Vein Open - Interaction Disposition, : Not Applicable Interaction: Not Applicable Infant Feeding: Other (see below) (Pumping) Support Person: - Recovery Exam Fundal Tone: Firm Fundal Level: 1 Fingerbreadths Below Umbilicus Lochia Amount: Small Lochia Color: Rubra/Red Perineum Description: Intact, Minimal Bruising/Swelling Bladder Status: Indwelling Catheter in Place Urinary Elimination: Indwelling Catheter - Exam General: Alert, Oriented, Cooperative Lungs: Clear to Auscultation, Normal Respiratory Effort Cardiovascular: Regular Rate, Regular Rhythm GI/Abdominal Exam: Soft, Tender (appropriate) Extremities: Normal Inspection Skin: Warm, Dry, Intact Wound/Incisions: Dressing Dry and Intact - Problem List & Annotations (1) 34 weeks gestation of SNOMED Code(s): 38136154 Code(s): Z3A.34 - 34 WEEKS GESTATION OF Status: Acute Current Visit: Yes (2) Chronic hypertension during SNOMED Code(s): 52905071 Code(s): O10.919 - UNSP PRE-EXISTING HTN COMP , UNSP TRIMESTER Status: Acute Current Visit: Yes (3) Pre-eclampsia superimposed on chronic hypertension SNOMED Code(s): 53007689, 42921842 Code(s): O11.9 - PRE-EXISTING HYPERTENSION WITH PRE-ECLAMPSIA, UNSP TRIMESTER Status: Acute Current Visit: Yes (4) History of SNOMED Code(s): 719735605 Code(s): Z98.891 - HISTORY OF UTERINE SCAR FROM PREVIOUS SURGERY Status: Acute Current Visit: Yes - Problem List Review Problem List Initiated/Reviewed/Updated: Yes - My Orders Last 24 Hours: My Active Orders 08/21/17 09:57 Non Stress Test [RC] PER UNIT ROUTINE Resuscitation Status Routine 08/21/17 10:26 Bedrest [RC] ASDIRECTED Monitoring [RC] CONTINUOUS Vital Signs [RC] ASDIRECTED 08/21/17 10:45 Lactated Ringers [Ringers, Lactated] 1,000 ml IV ASDIRECTED 08/21/17 11:00 Magnesium Sulfate/Water [Magnesium Sulfate 40 GM in Water 1000 ML] 40 gm in 1, 000 ml IV ASDIRECTED 08/21/17 11:13 Communication Order [RC] ROUTINE Heart Tones [RC] PER UNIT ROUTINE Procedure Site Prep Instruct [RC] ASDIRECTED Verify Patient Consent Obtain [RC] PER UNIT ROUTINE Schedule Procedure [COMM] Per Unit Routine 08/21/17 13:57 Antiembolic Devices [RC] PER UNIT ROUTINE Bedrest [RC] ASDIRECTED Communication Order [RC] ASDIRECTED Communication Order [RC] PER UNIT ROUTINE Communication Order [RC] PER UNIT ROUTINE Intake and Output [RC] Q2HR Notify Provider Intake and Out [RC] ASDIRECTED Notify Provider Status Change [RC] ASDIRECTED Notify Provider Vital Signs [RC] ASDIRECTED Notify Provider [RC] ASDIRECTED Oxygen Therapy [RC] PRN RT Incentive Spirometry [RC] Q2HWA Vital Signs [RC] Q1HR Acetaminophen/oxyCODONE [Percocet 325-5 MG] 2 tab PO Q4H PRN Calcium Gluconate 1 gm IV ASDIRECTED PRN Assess Lochia [WOMSER] Per Unit Routine Assess Uterine Involution [WOMSER] Per Unit Routine Breast Pump [WOMSER] Per Unit Routine Deep Tendon Reflexes [WOMSER] ASDIRECTED Sequential Compression Device [OM.PC] Per Unit Routine 08/21/17 19:18 Calcium Carbonate [Tums] 500 mg PO Q2HR PRN 08/22/17 05:11 CBC W/O DIFF,HEMOGRAM [HEME] AM 08/22/17 12:58 Urinary Catheter Removal [RC] Per Unit Routine 08/22/17 Lunch Regular Diet [DIET] - Assessment Assessment:: 36 y/o G3 now P2103 POD#1 from RLTCS for superimposed pre-eclampsia - Plan Plan:: Superimposed preeclampsia s/p RLTCS * Magnesium to be off at noon today * Continue with labetalol for now. Will hold nifedipine. Further dose adjustments as needed throughout the day * Once magnesium discontinued can remove ortiz and SLIV * Percocet for pain control * Routine cares otherwise
[2017-08-22] MEDS: Magnesium Sulfate/Water 40 GM/1,000 ML BAG IV SCH (09:57)
[2017-08-22] MEDS ORDERED: Labetalol 100 MG Tab PO ONE ×2 (13:00→14:56)
[2017-08-22] MEDS ORDERED: Acetaminophen 325 MG Tab PO PRN (20:43)
[2017-08-22] MEDS ORDERED: Ibuprofen 600 MG Tab PO PRN (20:44)
[2017-08-22] MEDS ORDERED: Labetalol 100 MG Tab PO SCH (21:21)
[2017-08-23] MEDS: Labetalol 100 MG Tab PO SCH ×2 (00:49→08:23)
--- NOTE | 2017-08-23 07:53 | PCM.PNPP ---
- General Info Date of Service: 08/23/17 Functional Status: Reports: Pain Controlled, Tolerating Diet, Ambulating, Urinating - Review of Systems General: Reports: No Symptoms Pulmonary: Reports: No Symptoms Cardiovascular: Reports: No Symptoms Gastrointestinal: Reports: Abdominal Pain (Some discomfort, manageable ) Genitourinary: Reports: No Symptoms Musculoskeletal: Reports: No Symptoms Neurological: Reports: No Symptoms - Patient Data Vital Signs - Most Recent: Last Vital Signs Temp 37.0 C 08/23/17 00:36 Pulse 66 08/23/17 02:06 Resp 14 08/23/17 00:36 BP 141/95 H 08/23/17 02:06 Pulse Ox 95 08/23/17 02:06 Weight - Most Recent: 116.21 kg I&O - Last 24 Hours: Intake & Output 08/22/17 08/23/17 08/23/17 22:59 06:59 14:59 Intake Total 2310 700 Output Total 3950 500 Balance -1640 200 Lab Results - Last 24 Hours: Laboratory Results - last 24 hr 08/22/17 Range/Units 05:45 WBC 19.61 H (3.98-10.04) K/mm3 RBC 3.96 L (3.98-5.22) M/mm3 Hgb 11.5 (11.2-15.7) gm/L Hct 34.7 (34.1-44.9) % MCV 87.6 (79.4-94.8) fl MCH 29.0 (25.6-32.2) pg MCHC 33.1 (32.2-35.5) g/dl RDW Std Deviation 40.9 (36.4-46.3) fL Plt Count 196 (182-369) K/mm3 MPV 12.4 H (9.4-12.3) fl Med Orders - Current: Current Medications Acetaminophen (Tylenol) 650 mg PO Q4H PRN PRN Reason: Pain Last Admin: 08/22/17 20:57 Dose: 650 mg Calcium Carbonate/Glycine (Tums) 500 mg PO Q2HR PRN PRN Reason: Indigestion Ibuprofen (Motrin) 600 mg PO Q6H PRN PRN Reason: Pain Labetalol HCl (Normodyne) 200 mg PO Q8H [facility] Last Admin: 08/23/17 00:49 Dose: 200 mg Oxycodone/Acetaminophen (Percocet 325-5 Mg) 2 tab PO Q4H PRN PRN Reason: Pain (moderate 4-6) Discontinued Medications Betamethasone Acet/Betameth SodPhos (Celestone Soluspan 6 Mg/Ml) 12 mg IM ONETIME ONE Stop: 08/21/17 10:16 Last Admin: 08/21/17 10:38 Dose: 12 mg Calcium Gluconate (Calcium Gluconate) 1 gm IV ASDIRECTED PRN PRN Reason: respiratory distress Cefazolin Sodium (Ancef) Confirm Administered Dose 2 gm .ROUTE .STK-MED ONE Stop: 08/21/17 11:30 Citric Acid/Sodium Citrate (Bicitra Solution) 30 ml PO ONETIME ONE Stop: 08/21/17 11:14 Last Admin: 08/21/17 11:24 Dose: 30 ml Diphenhydramine HCl (Benadryl) 25 mg IVPUSH Q6H PRN PRN Reason: Pruritis Ephedrine Sulfate (Ephedrine Sulfate) Confirm Administered Dose 50 mg .ROUTE .STK-MED ONE Stop: 08/21/17 11:37 Fentanyl (Sublimaze) 50 mcg IVPUSH Q5M PRN PRN Reason: Pain Hydralazine HCl (Apresoline) 10 mg IVPUSH ONETIME STA Stop: 08/21/17 10:27 Last Admin: 08/21/17 10:33 Dose: 10 mg Hydralazine HCl (Apresoline) 10 mg IVPUSH ONETIME ONE Stop: 08/21/17 18:15 Last Admin: 08/21/17 19:40 Dose: Not Given Hydralazine HCl (Apresoline) 10 mg IVPUSH ONETIME ONE Stop: 08/21/17 10:54 Last Admin: 08/21/17 10:53 Dose: 10 mg Magnesium Sulfate (Magnesium Sulfate 4 Gm In Water 100 Ml) Confirm Administered Dose 100 mls @ as directed .ROUTE .STK-MED ONE Stop: 08/21/17 10:23 Last Admin: 08/21/17 14:38 Dose: Not Given Magnesium Sulfate (Magnesium Sulfate 2 Gm In Water 50 Ml) Confirm Administered Dose 50 mls @ as directed .ROUTE .STK-MED ONE Stop: 08/21/17 10:23 Last Admin: 08/21/17 14:38 Dose: Not Given Magnesium Sulfate (Magnesium Sulfate 40 Gm In Water 1000 Ml) Confirm Administered Dose 40 gm in 1,000 mls @ as directed .ROUTE .STK-MED ONE Stop: 08/21/17 10:23 Last Admin: 08/21/17 14:37 Dose: Not Given Magnesium Sulfate 4 gm/ Premix 100 mls @ 300 mls/hr IV ONETIME ONE Stop: 08/21/17 10:45 Last Admin: 08/21/17 10:45 Dose: 300 mls/hr Magnesium Sulfate 2 gm/ Premix 50 mls @ 300 mls/hr IV ONETIME ONE Stop: 08/21/17 10:35 Last Admin: 08/21/17 10:38 Dose: 300 mls/hr Lactated Ringer's (Ringers, Lactated) 1,000 mls @ 75 mls/hr IV ASDIRECTED [facility] Last Admin: 08/21/17 18:03 Dose: 75 mls/hr Magnesium Sulfate (Magnesium Sulfate 40 Gm In Water 1000 Ml) 40 gm in 1,000 mls @ 50 mls/hr IV ASDIRECTED [facility] Last Infusion: 08/22/17 09:57 Dose: 50 mls/hr Cefazolin Sodium/Dextrose 2 gm (/ Premix) 50 mls @ 100 mls/hr IV ONETIME ONE Stop: 08/21/17 11:42 Last Admin: 08/21/17 14:37 Dose: Not Given Oxytocin/Lactated Ringer's (Pitocin In Lr 10 Units/1,000 Ml) 10 unit in 1,000 mls @ 100 mls/hr IV ASDIRECTED [facility]; Protocol Ketorolac Tromethamine (Toradol) Confirm Administered Dose 30 mg .ROUTE .STK- MED ONE Stop: 08/21/17 12:30 Ketorolac Tromethamine (Toradol) 30 mg IVPUSH Q6H [facility] Stop: 08/22/17 06:31 Last Admin: 08/22/17 20:58 Dose: 30 mg Labetalol HCl (Normodyne) 20 mg IVPUSH ONETIME ONE; Protocol Stop: 08/21/17 11:08 Last Admin: 08/21/17 11:12 Dose: 4 ml Labetalol HCl (Normodyne) Confirm Administered Dose 100 mg .ROUTE .STK-MED ONE Stop: 08/21/17 11:07 Last Admin: 08/21/17 14:37 Dose: Not Given Labetalol HCl (Normodyne) 20 mg IVPUSH ONETIME ONE; Protocol Stop: 08/21/17 18:17 Last Admin: 08/21/17 18:36 Dose: 20 mg Labetalol HCl (Normodyne) 400 mg PO BID [facility] Labetalol HCl (Normodyne) 400 mg PO BID [facility] Last Admin: 08/21/17 21:49 Dose: 400 mg Labetalol HCl (Normodyne) 400 mg PO ONETIME ONE Stop: 08/22/17 13:01 Last Admin: 08/22/17 13:00 Dose: Not Given Labetalol HCl (Normodyne) 200 mg PO ONETIME ONE Stop: 08/22/17 14:57 Last Admin: 08/22/17 15:49 Dose: 200 mg Meperidine HCl (Demerol) 12.5 mg IVPUSH ONETIME PRN PRN Reason: Shivering Metoclopramide HCl (Reglan) 10 mg IVPUSH ONETIME ONE Stop: 08/21/17 11:14 Last Admin: 08/21/17 11:24 Dose: 10 mg Morphine Sulfate (Duramorph Pf) Confirm Administered Dose 10 mg .ROUTE .STK-MED ONE Stop: 08/21/17 11:32 Nifedipine (Procardia Xl) 30 mg PO ONETIME ONE Stop: 08/21/17 15:53 Last Admin: 08/21/17 16:03 Dose: 30 mg Nifedipine (Procardia Xl) 30 mg PO ONETIME ONE Stop: 08/21/17 17:18 Last Admin: 08/21/17 18:02 Dose: 30 mg Nifedipine (Procardia Xl) 60 mg PO ONETIME ONE Stop: 08/22/17 03:01 Ondansetron HCl (Zofran) Confirm Administered Dose 4 mg .ROUTE .STK-MED ONE Stop: 08/21/17 11:30 Ondansetron HCl (Zofran) 4 mg IVPUSH ONETIME PRN PRN Reason: Nausea/Vomiting Oxytocin (Pitocin) Confirm Administered Dose 10 unit .ROUTE .STK-MED ONE Stop: 08/21/17 11:30 Phenylephrine HCl (Rolf-Synephrine) Confirm Administered Dose 10 mg .ROUTE .STK- MED ONE Stop: 08/21/17 11:35 Sodium Chloride (Saline Flush) 10 ml FLUSH ASDIRECTED PRN PRN Reason: Keep Vein Open - Infant Interaction Disposition, : Not Applicable Infant Interaction: Not Applicable Infant Feeding: Other (see below) (Pumping) Support Person: - Recovery Exam Fundal Tone: Firm Fundal Level: 1 Fingerbreadths Below Umbilicus Fundal Placement: Midline Lochia Amount: Small Lochia Color: Rubra/Red Perineum Description: Intact, Minimal Bruising/Swelling Episiotomy/Laceration: None Bladder Status: Indwelling Catheter in Place Urinary Elimination: Indwelling Catheter - Exam General: Alert, Oriented, Cooperative Lungs: Clear to Auscultation, Normal Respiratory Effort Cardiovascular: Regular Rate, Regular Rhythm GI/Abdominal Exam: Soft, Non-Tender Extremities: Normal Inspection Skin: Warm, Dry, Intact Wound/Incisions: Healing Well, No Drainage - Problem List & Annotations (1) 34 weeks gestation of SNOMED Code(s): 77895051 Code(s): Z3A.34 - 34 WEEKS GESTATION OF Status: Acute (2) Chronic hypertension during SNOMED Code(s): 00725547 Code(s): O10.919 - UNSP PRE-EXISTING HTN COMP , UNSP TRIMESTER Status: Acute (3) Pre-eclampsia superimposed on chronic hypertension SNOMED Code(s): 43454534, 25843554 Code(s): O11.9 - PRE-EXISTING HYPERTENSION WITH PRE-ECLAMPSIA, UNSP TRIMESTER Status: Acute (4) History of SNOMED Code(s): 803285168 Code(s): Z98.891 - HISTORY OF UTERINE SCAR FROM PREVIOUS SURGERY Status: Acute (5) S/P repeat low transverse SNOMED Code(s): 036962430, 908168732, 375938263, 942035120 Code(s): Z98.891 - HISTORY OF UTERINE SCAR FROM PREVIOUS SURGERY Status: Acute - Problem List Review Problem List Initiated/Reviewed/Updated: Yes - My Orders Last 24 Hours: My Active Orders 08/22/17 20:43 Acetaminophen [Tylenol] 650 mg PO Q4H PRN 08/22/17 20:44 Ibuprofen [Motrin] 600 mg PO Q6H PRN 08/22/17 Lunch Regular Diet [DIET] 08/23/17 00:00 Labetalol [Normodyne] 200 mg PO Q8H - Assessment Assessment:: 36 y/o G3 now P2103 POD#2 from RLTCS for superimposed pre-eclampsia - Plan Plan:: Superimposed preeclampsia s/p RLTCS * S/p 24 hours of Magnesium * Labetalol dose adjusted yesterday PM as patient was almost too low at 120's/60 's. Over night was on 200 mg q8 hours with BP's of 130/80-140/90's. This seems like a more acceptable target. Will continue this dose of medication. Patient will assess BP's with home cuff and will follow up early next week for BP check in clinic. * Discharge home today
--- NOTE | 2017-08-23 07:56 | PCM.DCSUM1 ---
Discharge Summary - Discharge Data Discharge Date: 08/23/17 Discharge Disposition: Home, Self-Care 01 Condition: Good - Discharge Diagnosis/Problem(s) (1) 34 weeks gestation of SNOMED Code(s): 09103129 ICD Code: Z3A.34 - 34 WEEKS GESTATION OF Status: Acute (2) Chronic hypertension during SNOMED Code(s): 68661006 ICD Code: O10.919 - UNSP PRE-EXISTING HTN COMP , UNSP TRIMESTER Status: Acute (3) Pre-eclampsia superimposed on chronic hypertension SNOMED Code(s): 74375159, 61222710 ICD Code: O11.9 - PRE-EXISTING HYPERTENSION WITH PRE-ECLAMPSIA, UNSP TRIMESTER Status: Acute (4) History of SNOMED Code(s): 301942178 ICD Code: Z98.891 - HISTORY OF UTERINE SCAR FROM PREVIOUS SURGERY Status: Acute (5) S/P repeat low transverse SNOMED Code(s): 497975111, 426326970, 502796800, 395609168 ICD Code: Z98.891 - HISTORY OF UTERINE SCAR FROM PREVIOUS SURGERY Status: Acute - Patient Summary/Data Operative Procedure(s) Performed: Repeat low transverse . Drainage/ excision of left sided paratubal cyst Complications: None Consults: None Recommended Follow-up Testing/Procedures: Follow up in 1 week for BP check Hospital Course: Patient is a 36 y/o woman at 34 0/7 wks who presented from clinic with severe range BP's in setting of known CHTN. BP's in L&D were 212/127 at a max. She was started on magnesium, given IV hydralazine x2 and IV labetalol. Despite this still had severe range BP's although improved to ~170 systolic level. She was taken for emergent RLTCS. See operative note. Baby was transferred to [place] due to gestational age. Post op she was maintained on magnesium for 24 hours. Anti-hypertensive regimen adjusted on several occasions. Final regimen on discharge 200 mg q 8 hours of labetalol. Plan for follow up in 1 week for BP check. - Patient Instructions Diet: Regular Diet as Tolerated Activity: No Lifting Over 10 Pounds Activity, Other: Pelvic Rest for 6 weeks Driving: Do Not Drive (While taking narcotics ) Showering/Bathing: May Shower, No Tub Bathing/Swimming Wound/Incision Care: Keep Operative Site/Wound Site Clean and Dry Notify Provider of: Fever, Increased Pain, Swelling and Redness, Drainage, Nausea and/or Vomiting - Discharge Plan Prescriptions/Med Rec: Acetaminophen/oxyCODONE [Percocet 325-5 MG] 2 tab PO Q4H PRN #25 tablet PRN Reason: Pain (Moderate 4-6) Labetalol [Normodyne] 200 mg PO Q8H #126 tablet Home Medications: Home Meds Acetaminophen/oxyCODONE [Percocet 325-5 MG] 2 tab PO Q4H PRN #25 tablet [Rx] Labetalol [Normodyne] 200 mg PO Q8H #126 tablet 08/23/17 [Rx] Patient Handouts: Preeclampsia and Eclampsia, Delivery, Care After, Home Care Instructions for Mom Referrals: Jamaica Tuttle MD [Primary Care Provider] - (1 week for BP check ) - Discharge Summary/Plan Comment DC Time >30 min.: No - Patient Data Vitals - Most Recent: Last Vital Signs Temp 37.0 C 08/23/17 00:36 Pulse 66 08/23/17 02:06 Resp 14 08/23/17 00:36 BP 141/95 H 08/23/17 02:06 Pulse Ox 95 08/23/17 02:06 Weight - Most Recent: 116.21 kg I&O - Last 24 hours: Intake & Output 08/22/17 08/23/17 08/23/17 22:59 06:59 14:59 Intake Total 2310 700 Output Total 3950 500 Balance -1640 200 Lab Results - Last 24 hrs: Laboratory Results - last 24 hr 08/22/17 Range/Units 05:45 WBC 19.61 H (3.98-10.04) K/mm3 RBC 3.96 L (3.98-5.22) M/mm3 Hgb 11.5 (11.2-15.7) gm/L Hct 34.7 (34.1-44.9) % MCV 87.6 (79.4-94.8) fl MCH 29.0 (25.6-32.2) pg MCHC 33.1 (32.2-35.5) g/dl RDW Std Deviation 40.9 (36.4-46.3) fL Plt Count 196 (182-369) K/mm3 MPV 12.4 H (9.4-12.3) fl Med Orders - Current: Current Medications Acetaminophen (Tylenol) 650 mg PO Q4H PRN PRN Reason: Pain Last Admin: 08/22/17 20:57 Dose: 650 mg Calcium Carbonate/Glycine (Tums) 500 mg PO Q2HR PRN PRN Reason: Indigestion Ibuprofen (Motrin) 600 mg PO Q6H PRN PRN Reason: Pain Labetalol HCl (Normodyne) 200 mg PO Q8H [place]ISSETTE Last Admin: 08/23/17 00:49 Dose: 200 mg Oxycodone/Acetaminophen (Percocet 325-5 Mg) 2 tab PO Q4H PRN PRN Reason: Pain (moderate 4-6) Discontinued Medications Betamethasone Acet/Betameth SodPhos (Celestone Soluspan 6 Mg/Ml) 12 mg IM ONETIME ONE Stop: 08/21/17 10:16 Last Admin: 08/21/17 10:38 Dose: 12 mg Calcium Gluconate (Calcium Gluconate) 1 gm IV ASDIRECTED PRN PRN Reason: respiratory distress Cefazolin Sodium (Ancef) Confirm Administered Dose 2 gm .ROUTE .STK-MED ONE Stop: 08/21/17 11:30 Citric Acid/Sodium Citrate (Bicitra Solution) 30 ml PO ONETIME ONE Stop: 08/21/17 11:14 Last Admin: 08/21/17 11:24 Dose: 30 ml Diphenhydramine HCl (Benadryl) 25 mg IVPUSH Q6H PRN PRN Reason: Pruritis Ephedrine Sulfate (Ephedrine Sulfate) Confirm Administered Dose 50 mg .ROUTE .STK-MED ONE Stop: 08/21/17 11:37 Fentanyl (Sublimaze) 50 mcg IVPUSH Q5M PRN PRN Reason: Pain Hydralazine HCl (Apresoline) 10 mg IVPUSH ONETIME STA Stop: 08/21/17 10:27 Last Admin: 08/21/17 10:33 Dose: 10 mg Hydralazine HCl (Apresoline) 10 mg IVPUSH ONETIME ONE Stop: 08/21/17 18:15 Last Admin: 08/21/17 19:40 Dose: Not Given Hydralazine HCl (Apresoline) 10 mg IVPUSH ONETIME ONE Stop: 08/21/17 10:54 Last Admin: 08/21/17 10:53 Dose: 10 mg Magnesium Sulfate (Magnesium Sulfate 4 Gm In Water 100 Ml) Confirm Administered Dose 100 mls @ as directed .ROUTE .[facility] ONE Stop: 08/21/17 10:23 Last Admin: 08/21/17 14:38 Dose: Not Given Magnesium Sulfate (Magnesium Sulfate 2 Gm In Water 50 Ml) Confirm Administered Dose 50 mls @ as directed .ROUTE .[facility] ONE Stop: 08/21/17 10:23 Last Admin: 08/21/17 14:38 Dose: Not Given Magnesium Sulfate (Magnesium Sulfate 40 Gm In Water 1000 Ml) Confirm Administered Dose 40 gm in 1,000 mls @ as directed .ROUTE .[facility] ONE Stop: 08/21/17 10:23 Last Admin: 08/21/17 14:37 Dose: Not Given Magnesium Sulfate 4 gm/ Premix 100 mls @ 300 mls/hr IV ONETIME ONE Stop: 08/21/17 10:45 Last Admin: 08/21/17 10:45 Dose: 300 mls/hr Magnesium Sulfate 2 gm/ Premix 50 mls @ 300 mls/hr IV ONETIME ONE Stop: 08/21/17 10:35 Last Admin: 08/21/17 10:38 Dose: 300 mls/hr Lactated Ringer's (Ringers, Lactated) 1,000 mls @ 75 mls/hr IV ASDIRECTED [facility] Last Admin: 08/21/17 18:03 Dose: 75 mls/hr Magnesium Sulfate (Magnesium Sulfate 40 Gm In Water 1000 Ml) 40 gm in 1,000 mls @ 50 mls/hr IV ASDIRECTED [place]SETTE Last Infusion: 08/22/17 09:57 Dose: 50 mls/hr Cefazolin Sodium/Dextrose 2 gm (/ Premix) 50 mls @ 100 mls/hr IV ONETIME ONE Stop: 08/21/17 11:42 Last Admin: 08/21/17 14:37 Dose: Not Given Oxytocin/Lactated Ringer's (Pitocin In Lr 10 Units/1,000 Ml) 10 unit in 1,000 mls @ 100 mls/hr IV ASDIRECTED [place]ISSETTE; Protocol Ketorolac Tromethamine (Toradol) Confirm Administered Dose 30 mg .ROUTE .STK- MED ONE Stop: 08/21/17 12:30 Ketorolac Tromethamine (Toradol) 30 mg IVPUSH Q6H [facility] Stop: 08/22/17 06:31 Last Admin: 08/22/17 20:58 Dose: 30 mg Labetalol HCl (Normodyne) 20 mg IVPUSH ONETIME ONE; Protocol Stop: 08/21/17 11:08 Last Admin: 08/21/17 11:12 Dose: 4 ml Labetalol HCl (Normodyne) Confirm Administered Dose 100 mg .ROUTE .STK-MED ONE Stop: 08/21/17 11:07 Last Admin: 08/21/17 14:37 Dose: Not Given Labetalol HCl (Normodyne) 20 mg IVPUSH ONETIME ONE; Protocol Stop: 08/21/17 18:17 Last Admin: 08/21/17 18:36 Dose: 20 mg Labetalol HCl (Normodyne) 400 mg PO BID [facility] Labetalol HCl (Normodyne) 400 mg PO BID [facility] Last Admin: 08/21/17 21:49 Dose: 400 mg Labetalol HCl (Normodyne) 400 mg PO ONETIME ONE Stop: 08/22/17 13:01 Last Admin: 08/22/17 13:00 Dose: Not Given Labetalol HCl (Normodyne) 200 mg PO ONETIME ONE Stop: 08/22/17 14:57 Last Admin: 08/22/17 15:49 Dose: 200 mg Meperidine HCl (Demerol) 12.5 mg IVPUSH ONETIME PRN PRN Reason: Shivering Metoclopramide HCl (Reglan) 10 mg IVPUSH ONETIME ONE Stop: 08/21/17 11:14 Last Admin: 08/21/17 11:24 Dose: 10 mg Morphine Sulfate (Duramorph Pf) Confirm Administered Dose 10 mg .ROUTE .STK-MED ONE Stop: 08/21/17 11:32 Nifedipine (Procardia Xl) 30 mg PO ONETIME ONE Stop: 08/21/17 15:53 Last Admin: 08/21/17 16:03 Dose: 30 mg Nifedipine (Procardia Xl) 30 mg PO ONETIME ONE Stop: 08/21/17 17:18 Last Admin: 08/21/17 18:02 Dose: 30 mg Nifedipine (Procardia Xl) 60 mg PO ONETIME ONE Stop: 08/22/17 03:01 Ondansetron HCl (Zofran) Confirm Administered Dose 4 mg .ROUTE .STK-MED ONE Stop: 08/21/17 11:30 Ondansetron HCl (Zofran) 4 mg IVPUSH ONETIME PRN PRN Reason: Nausea/Vomiting Oxytocin (Pitocin) Confirm Administered Dose 10 unit .ROUTE .STK-MED ONE Stop: 08/21/17 11:30 Phenylephrine HCl (Rolf-Synephrine) Confirm Administered Dose 10 mg .ROUTE .STK- MED ONE Stop: 08/21/17 11:35 Sodium Chloride (Saline Flush) 10 ml FLUSH ASDIRECTED PRN PRN Reason: Keep Vein Open
[2017-08-23 08:24] VITALS: BP 158/103
== END 2017-08-23 08:38 | disposition home or self-care (01) | DRG 540 ==
LOC: JD.OBCHECK 09:45 → JD.OB 09:47 → JD.OBCHECK 11:29 → UNDOADMOB 11:30 → JD.OB 11:30 → OBSVTOIN 11:55 → JD.OB 11:55
PROVIDERS: ADMIT Obstetrics & Gynecology; ATTEND Obstetrics & Gynecology
PROC: 10D00Z1 Extraction of Products of Conception, Low, Open Approach (ICD-10-PCS; principal; 2017-08-21)
PROC: 0UB60ZZ Excision of Left Fallopian Tube, Open Approach (ICD-10-PCS; 2017-08-21)
DX: O11.4 Pre-existing hypertension with pre-eclampsia, complicating childbirth (principal); O99.344 Other mental disorders complicating childbirth; O10.92 Unspecified pre-existing hypertension complicating childbirth; F41.9 Anxiety disorder, unspecified; Z3A.34 34 weeks gestation of pregnancy; Z37.0 Single live birth; O34.211 Maternal care for low transverse scar from previous cesarean delivery; N85.8 Other specified noninflammatory disorders of uterus; O75.89 Other specified complications of labor and delivery; N83.8 Other noninflammatory disorders of ovary, fallopian tube and broad ligament; Z88.8 Allergy status to other drugs, medicaments and biological substances; Z79.899 Other long term (current) drug therapy
CPT/HCPCS: 36415; 51702; 59025; 81001; 82565; 83615; 84450; 84460; 84520; 84550; 85025; 85027; 86850; 86900; 86901; 94762; A9270-GY; J0360; J0690; J0702; J1885; J2270; J2370; J2405; J2590; J2765; J3475; J7120

== ENCOUNTER 2019-12-16 12:23 | Emergency (ER) | payer OTHER ==
[2019-12-16] MEDS ORDERED: Hydrochlorothiazide 25 MG Tab PO ONE (12:56)
--- NOTE | 2019-12-16 13:22 | CT ---
Head CT Technique: Multiple axial sections through the brain were obtained. Intravenous contrast was not utilized. Findings: Ventricles along with basal cisterns and sulci over the convexities are within normal limits for the patient's age. No abnormal parenchymal densities are seen. No evidence of intracranial hemorrhage. No midline shift or mass-effect is seen. Bone window settings were reviewed. Visualized paranasal sinuses and mastoid sinuses are clear. No acute calvarial abnormality is appreciated. Impression: 1. Nothing acute is appreciated on noncontrast head CT study. Diagnostic code #1 This report was dictated in MDT
[2019-12-16] MEDS ORDERED: Ketorolac 60 MG/2 ML SDV IM ONE (14:05)
[2019-12-16] MEDS ORDERED: Metoclopramide 10 MG/2 ML SDV IM ONE (14:06)
[2019-12-16] MEDS ORDERED: diphenhydrAMINE 50 MG/ML SDV IM ONE (14:06)
--- NOTE | 2019-12-16 14:11 | EDM.PDOC ---
ED HPI GENERAL MEDICAL PROBLEM - General Chief Complaint: Cardiovascular Problem Stated Complaint: HIGH BP Time Seen by Provider: 12/16/19 12:30 Source of Information: Reports: Patient History Limitations: Reports: No Limitations - History of Present Illness INITIAL COMMENTS - FREE TEXT/NARRATIVE: The patient presents with a headache and neck pain. She said this started a few days ago and it did not go away. She went to the clinic and her BP was elevated. They sent her here for further work up. She tried a triptan for migraines for the headache and that did not help. She had hypertension when she was and that went away. She has no numbness or weakness. She has no fever, chills, cough, congestion, runny nose, chest pain, shortness of breath or abdominal pain. Onset: Gradual Duration: Day(s): Location: Reports: Head, Neck Quality: Reports: Sharp Severity: Moderate Improves with: Reports: None Worsens with: Reports: None Associated Symptoms: Reports: Headaches. Denies: Chest Pain, Cough, Fever/Chills, Nausea/Vomiting, Shortness of Breath Left Posterior Neck Pain Score (Numeric/FACES): 2 - Related Data Allergies Allergy/AdvReac Type Severity Reaction Status Date / Time PAIN KILLERS AdvReac Severe Nausea Uncoded 12/16/19 12:36 Home Meds: Home Meds . 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: Psychiatric History: Reports: Anxiety Endocrine/Metabolic History: Reports: Obesity/BMI 30+ - Past Surgical History HEENT Surgical History: Reports: Oral Surgery, Tonsillectomy, Other (See Below) Female Surgical History: Reports: Section Social & Family History - Family History Family Medical History: Noncontributory - Tobacco Use Smoking Status *Q: Former Smoker Used Tobacco, but Quit: Yes Month/Year Tobacco Last Used: 1999 - Caffeine Use Caffeine Use: Reports: Tea - Recreational Drug Use Recreational Drug Use: No ED ROS GENERAL - Review of Systems Review Of Systems: See Below Constitutional: Reports: No Symptoms HEENT: Reports: No Symptoms Respiratory: Reports: No Symptoms Cardiovascular: Reports: No Symptoms Endocrine: Reports: No Symptoms GI/Abdominal: Reports: No Symptoms : Reports: No Symptoms Musculoskeletal: Reports: Neck Pain Neurological: Reports: Headache ED EXAM, GENERAL - Physical Exam Exam: See Below Exam Limited By: No Limitations General Appearance: Alert, No Apparent Distress Ears: Normal External Exam Nose: Normal Inspection Head: Atraumatic, Normocephalic Neck: Normal Inspection Respiratory/Chest: No Respiratory Distress, Lungs Clear, Normal Breath Sounds Cardiovascular: Regular Rate, Rhythm, No Edema, No Murmur GI/Abdominal: Soft, Non-Tender, No Organomegaly, No Mass Extremities: Normal Inspection Neurological: Alert, Oriented, No Motor/Sensory Deficits Course - Vital Signs Last Recorded V/S: Last Vital Signs Temp 97.9 F 12/16/19 12:31 Pulse 69 12/16/19 12:47 Resp 16 12/16/19 12:47 BP 174/105 H 12/16/19 12:47 Pulse Ox 98 12/16/19 12:47 - Orders/Labs/Meds Orders: Active Orders 24 hr Category Date Time Status Ketorolac [Toradol] Med 12/16/19 14:05 Once 60 mg IM ONETIME ONE Metoclopramide [Reglan] Med 12/16/19 14:06 Once 10 mg IM ONETIME ONE diphenhydrAMINE [Benadryl] Med 12/16/19 14:06 Once 50 mg IM ONETIME ONE Meds: Medications Discontinued Medications Generic Name Dose Route Start Last Admin Trade Name Jyoti PRN Reason Stop Dose Admin Hydrochlorothiazide 25 mg 12/16/19 12:56 12/16/19 13:03 Hydrochlorothiazide PO 12/16/19 12:57 25 mg ONETIME ONE Administration - Re-Assessments/Exams Free Text/Narrative Re-Assessment/Exam: 12/16/19 14:[address] of her head and HCTZ. Her CT looks good. I have ordered some reglan 10mg IM, benadryl 50mg IM and toradol 60mg IM for her headache. I will discharge her home. Departure - Departure Time of Disposition: 14:10 Disposition: Home, Self-Care 01 Condition: Good Clinical Impression: Headache Qualifiers: Headache type: unspecified Headache chronicity pattern: acute headache Intractability: not intractable Qualified Code(s): R51 - Headache Referrals: Mary Reddy PA-C [Primary Care Provider] - 1 Week Additional Instructions: Go home and rest. Follow up with your doctor within a week. If you continue to have high blood pressure, you may need to be treated. Sepsis Event Note (ED) - Evaluation Sepsis Screening Result: No Definite Risk - Focused Exam Vital Signs: Vital Signs Temp Pulse Resp BP Pulse Ox 12/16/19 12:47 69 16 174/105 H 98 12/16/19 12:31 97.9 F 75 18 196/118 H 98 - My Orders Last 24 Hours: My Active Orders 12/16/19 14:05 Ketorolac [Toradol] 60 mg IM ONETIME ONE 12/16/19 14:06 Metoclopramide [Reglan] 10 mg IM ONETIME ONE diphenhydrAMINE [Benadryl] 50 mg IM ONETIME ONE - Assessment/Plan Last 24 Hours: My Active Orders 12/16/19 14:05 Ketorolac [Toradol] 60 mg IM ONETIME ONE 12/16/19 14:06 Metoclopramide [Reglan] 10 mg IM ONETIME ONE diphenhydrAMINE [Benadryl] 50 mg IM ONETIME ONE
[2019-12-16 15:07] VITALS: BP 150/90; PULSE 80
== END 2019-12-16 14:45 | disposition home or self-care (01) ==
LOC: JD.ED 12:23
DX: R51 Headache (principal); I10 Essential (primary) hypertension; E66.9 Obesity, unspecified; Z68.41 Body mass index [BMI] 40.0-44.9, adult; Z87.891 Personal history of nicotine dependence; Z88.8 Allergy status to other drugs, medicaments and biological substances
CPT/HCPCS: 70450; 96372; 99284; A9270; J1200; J1885; J2765; 99283

== ENCOUNTER 2021-02-10 10:42 | Emergency (ER) | payer BC, OTHER ==
[2021-02-10] MEDS ORDERED: Sodium Chloride 0.9% 10 ML Syringe FLUSH PRN (11:52)
--- NOTE | 2021-02-10 11:55 | EDM.PDOC ---
ED HPI GENERAL MEDICAL PROBLEM - General Chief Complaint: Chest Pain Stated Complaint: POSS BLOOD CLOT Time Seen by Provider: 02/10/21 11:33 Source of Information: Reports: Patient, RN Notes Reviewed History Limitations: Reports: No Limitations - History of Present Illness INITIAL COMMENTS - FREE TEXT/NARRATIVE: The patient is a 40-year-old female who presents to the ER for the evaluation of her left-sided chest pain and shortness of breath. Patient notes that she had gastric sleeve surgery done in September 2020. She states that everything is going well with this for the most part. She states that on Monday however she developed some left-sided chest discomfort, with associated shortness of breath. She is not felt this sensation before ever, it seemed to last about 30 minutes and then went away. She does not state anything that would make it better or worse. She is denying any fevers or chills, cough or shortness of breath, she is currently chest pain-free at this time. Patient has a history of high blood pressure and did not take her blood pressure medications for the last few days, but her blood pressure is only in the 150 systolically. Patient had COVID-19 in December 2019, and has not received the Covid vaccine after having Covid. She has not been around anyone has been sick that she is aware of. Patient is concerned about a possible blood clot, as she googled her symptoms and presents to the ER for further evaluation. Patient states she is not a smoker, but she does have a Mirena IUD. Primary care provider is Mary Reddy. - Related Data Allergies Allergy/AdvReac Type Severity Reaction Status Date / Time No Known Allergies Allergy Verified 02/10/21 11:53 Home Meds: Home Meds . 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 ED EXAM, GENERAL - Physical Exam Exam: See Below Exam Limited By: No Limitations General Appearance: Alert, WD/WN, No Apparent Distress Respiratory/Chest: No Respiratory Distress, Lungs Clear, Normal Breath Sounds, No Accessory Muscle Use, Chest Non-Tender Cardiovascular: Normal Peripheral Pulses, Regular Rate, Rhythm, No Edema Extremities: Normal Inspection, Normal Capillary Refill Neurological: Alert, Oriented, Normal Cognition, No Motor/Sensory Deficits Psychiatric: Normal Affect, Normal Mood, Anxious (slight generalized) Skin Exam: Warm, Dry, Intact, Normal Color, No Rash #1 Interpretation EKG Date: 02/10/21 Time: 11:43 Rhythm: NSR Rate (Beats/Min): 60 Zephyr: LAD-Left Zephyr Deviation (Borderline) P-Wave: Present QRS: Normal ST-T: Normal QT: Normal Comparison: NA - No Prior EKG EKG Interpretation Comments: No obvious ischemia or acute ST changes noted, reviewed by myself and Dr. Smith. Course - Orders/Labs/Meds Orders: Active Orders 24 hr Category Date Time Status Peripheral IV Care [RC] . DIRECTED Care 02/10/21 11:52 Ordered Sodium Chloride 0.9% [Saline Flush] Med 02/10/21 11:52 Ordered 10 ml FLUSH ASDIRECTED PRN Peripheral IV Insertion Adult [OM.PC] Stat Oth 02/10/21 11:52 Ordered Medication Orders Sodium Chloride (Sodium Chloride 0.9% 10 Ml Syringe) 10 ml FLUSH ASDIRECTED PRN PRN Reason: Keep Vein Open Last Admin: 02/10/21 11:53 Dose: 10 ml Documented by: RATNA Labs: Laboratory Tests 02/10/21 02/10/21 02/10/21 Range/Units 11:45 11:45 11:45 WBC 7.79 (3.98-10.04) K/mm3 RBC 4.87 (3.98-5.22) M/mm3 Hgb 14.6 D (11.2-15.7) gm/dl Hct 44.5 (34.1-44.9) % MCV 91.4 D (79.4-94.8) fl MCH 30.0 (25.6-32.2) pg MCHC 32.8 (32.2-35.5) g/dl RDW Std Deviation 43.1 (36.4-46.3) fL Plt Count 232 (182-369) K/mm3 MPV 11.5 (9.4-12.3) fl Neut % (Auto) 53.8 (34.0-71.1) % Lymph % (Auto) 35.3 (19.3-51.7) % [place] % (Auto) 9.2 (4.7-12.5) % Eos % (Auto) 1.3 (0.7-5.8) Baso % (Auto) 0.4 (0.1-1.2) % Neut # (Auto) 4.19 (1.56-6.13) K/mm3 Lymph # (Auto) 2.75 (1.18-3.74) K/mm3 [place] # (Auto) 0.72 H (0.24-0.36) K/mm3 Eos # (Auto) 0.10 (0.04-0.36) K/mm3 Baso # (Auto) 0.03 (0.01-0.08) K/mm3 PT 10.4 (9.7-12.0) SECONDS INR 0.93 APTT 28.8 (21.7-31.4) SECONDS D-Dimer, Quantitative 0.25 (0.19-0.50) mg/L Sodium 142 (136-145) mEq/L Potassium 3.6 (3.5-5.1) mEq/L Chloride 106 (98-107) mEq/L Carbon Dioxide 29 (21-32) mEq/L Anion Gap 10.6 (5-15) BUN 17 (7-18) mg/dL Creatinine 0.9 (0.55-1.02) mg/dL Est Cr Clr Drug Dosing TNP Estimated GFR (MDRD) > 60 (>60) mL/min BUN/Creatinine Ratio 18.9 H (14-18) Glucose 75 (70-99) mg/dL Calcium 8.5 (8.5-10.1) mg/dL Magnesium 1.9 (1.8-2.4) mg/dL Total Bilirubin 0.5 (0.2-1.0) mg/dL AST 24 (15-37) U/L ALT 45 (14-59) U/L Alkaline Phosphatase 86 (46-116) U/L Troponin I < 0.017 (0.00-0.056) ng/mL NT-Pro-B Natriuret Pep (0-125) pg/mL Total Protein 6.8 (6.4-8.2) g/dl Albumin 3.8 (3.4-5.0) g/dl Globulin 3.0 gm/dL Albumin/Globulin Ratio 1.3 (1-2) 02/10/21 Range/Units 11:45 WBC (3.98-10.04) K/mm3 RBC (3.98-5.22) M/mm3 Hgb (11.2-15.7) gm/dl Hct (34.1-44.9) % MCV (79.4-94.8) fl MCH (25.6-32.2) pg MCHC (32.2-35.5) g/dl RDW Std Deviation (36.4-46.3) fL Plt Count (182-369) K/mm3 MPV (9.4-12.3) fl Neut % (Auto) (34.0-71.1) % Lymph % (Auto) (19.3-51.7) % [place] % (Auto) (4.7-12.5) % Eos % (Auto) (0.7-5.8) Baso % (Auto) (0.1-1.2) % Neut # (Auto) (1.56-6.13) K/mm3 Lymph # (Auto) (1.18-3.74) K/mm3 [place] # (Auto) (0.24-0.36) K/mm3 Eos # (Auto) (0.04-0.36) K/mm3 Baso # (Auto) (0.01-0.08) K/mm3 PT (9.7-12.0) SECONDS INR APTT (21.7-31.4) SECONDS D-Dimer, Quantitative (0.19-0.50) mg/L Sodium (136-145) mEq/L Potassium (3.5-5.1) mEq/L Chloride (98-107) mEq/L Carbon Dioxide (21-32) mEq/L Anion Gap (5-15) BUN (7-18) mg/dL Creatinine (0.55-1.02) mg/dL Est Cr Clr Drug Dosing Estimated GFR (MDRD) (>60) mL/min BUN/Creatinine Ratio (14-18) Glucose (70-99) mg/dL Calcium (8.5-10.1) mg/dL Magnesium (1.8-2.4) mg/dL Total Bilirubin (0.2-1.0) mg/dL AST (15-37) U/L ALT (14-59) U/L Alkaline Phosphatase (46-116) U/L Troponin I (0.00-0.056) ng/mL NT-Pro-B Natriuret Pep 133 H (0-125) pg/mL Total Protein (6.4-8.2) g/dl Albumin (3.4-5.0) g/dl Globulin gm/dL Albumin/Globulin Ratio (1-2) Meds: Medications Generic Name Dose Route Start Last Admin Trade Name Freq PRN Reason Stop Dose Admin Sodium Chloride 10 ml 02/10/21 11:52 02/10/21 11:53 Sodium Chloride 0.9% 10 Ml Syringe FLUSH 10 ml ASDIRECTED PRN Administration Keep Vein Open - Re-Assessments/Exams Free Text/Narrative Re-Assessment/Exam: 02/10/21 11:53 Patient presents to the ER for evaluation of her left-sided chest discomfort that happened on Monday. We will go ahead and do some basic labs, get a EKG and a chest x-ray for initial evaluation. 02/10/21 12:51 Patient's chest x-ray demonstrates no acute findings. Laboratory evaluation is also without acute findings. Patient's D-dimer test is within normal limits, troponin is undetectably low. We will let the patient go home at this time, does not seem to be any sort of pulmonary embolus, it could have just been musculoskeletal chest pain that caused her issues. Departure - Departure Time of Disposition: 12:54 Disposition: Home, Self-Care 01 Condition: Good Clinical Impression: Atypical chest pain Instructions: Nonspecific Chest Pain, Adult, [id number] Referrals: Mary Reddy PA-C [Primary Care Provider] - Forms: ED Department Discharge Additional Instructions: You were evaluated in the ER today for your chest pain. Your EKG, chest x-ray, and laboratory evaluation are all unremarkable. The chest pain is thought likely due to musculoskeletal etiology. The D-dimer test, that we do to evaluate for pulmonary embolus (PE) or a blood clot in your lungs was also within normal limits, there is no indication that you are suffering from a PE at today's visit. Please follow-up with your regular provider for ongoing management of your health. Please continue to take all other medications as previously prescribed by your regular provider. Please return to the ER at any time if symptoms change or worsen. - My Orders Last 24 Hours: My Active Orders 02/10/21 11:52 Peripheral IV Care [RC] . DIRECTED Sodium Chloride 0.9% [Saline Flush] 10 ml FLUSH ASDIRECTED PRN Peripheral IV Insertion Adult [OM.PC] Stat - Assessment/Plan Last 24 Hours: My Active Orders 02/10/21 11:52 Peripheral IV Care [RC] . DIRECTED Sodium Chloride 0.9% [Saline Flush] 10 ml FLUSH ASDIRECTED PRN Peripheral IV Insertion Adult [OM.PC] Stat
--- NOTE | 2021-02-10 12:23 | CR ---
Chest: Portable view of the chest was obtained. Comparison: No prior chest imaging is available. Heart size and mediastinum are within normal limits. Lungs are clear with no acute parenchymal change. No acute osseous abnormality is appreciated. Impression: 1. Nothing acute is seen on portable chest x-ray. Diagnostic code #1
== END 2021-02-10 13:26 | disposition home or self-care (01) ==
LOC: JD.ED 10:42
DX: R07.89 Other chest pain (principal); I10 Essential (primary) hypertension; E66.9 Obesity, unspecified; Z68.30 Body mass index [BMI] 30.0-30.9, adult
CPT/HCPCS: 36415; 71045; 71045-26; 80053; 83735; 83880; 84484; 85025; 85379; 85610; 85730; 93005; 93010; 99283; 99285-25